=== PATIENT | female | born 1945 | race Caucasian/White ===

== ENCOUNTER 2025-06-07 23:51 | Outpatient (CLI) | payer MEDICARE ==
[2025-06-08 04:11] LABS: Glucose, Urine (Dipstick) Negative (Negative); Leukocyte Small (Negative); Protein, Urine (Dipstick) Negative (Neg-Trace); RBC/HPF 0-3 HPF (0-3); Specific Gravity, Urine 1.015 (1.005-1.030)
[2025-06-08 04:12] LABS: Bacteria/HPF 4+ HPF (None Seen); WBC/HPF Greater than 50 HPF (0-3)
== END 2025-06-07 23:52 | disposition home or self-care (01) ==
LOC: MADLAB 23:51
PROVIDERS: ATTEND Emergency Medicine
DX: N39.0 Urinary tract infection, site not specified (principal)
CPT/HCPCS: 81001